=== PATIENT | male | born 1965 | race Caucasian/White ===

== ENCOUNTER 2019-12-16 17:15 | Outpatient (REF) | payer OTHER, SELFPAY ==
--- NOTE | 2019-12-16 17:15 | MR_ITS ---
EXAMINATION: MR KNEE WITHOUT CONTRAST, RIGHT CLINICAL INFORMATION: Right knee internal derangement. COMPARISON: Radiograph dated 03/21/2019. TECHNIQUE: MRI of the knee without contrast was performed using routine sequences on a high-field scanner. FINDINGS: MENISCI: Medial Meniscus: There is a horizontal tear of the posterior horn and body with significant free edge fraying. A small displaced 6 mm meniscal fragment is suspected at the free edge of the posterior horn of the root insertion. Lateral Meniscus: Intact. LIGAMENTS: Cruciate: Intact. Collateral: Intact. EXTENSOR MECHANISM: Intact. ARTICULAR CARTILAGE/BONE: Patellofemoral Compartment: A 1.0 x 0.5 cm area of partial-thickness cartilage loss and full-thickness chondral fissuring is present in the central trochlear groove inferiorly with underlying subchondral sclerosis and cortical irregularity. There is minimal superficial chondral irregularity at the median ridge. Tiny patellar osteophytes are present. Medial Compartment: There is a small focus of cystic change deep to the posterior root insertion of the medial meniscus at the posterolateral aspect of the medial tibial plateau. Marrow signal is otherwise normal. Minimal chondral thinning and surface irregularity at the medial tibial plateau. Lateral Compartment: Normal. JOINT FLUID AND BURSAE: Trace joint effusion and Andrade's cyst. IMPRESSION: 1. Horizontal tear of the posterior horn and body of the medial meniscus with free edge fraying and a probable small flap fragment at the posterior root insertion. 2. Minimal arthrosis in the medial and patellofemoral compartments. A full-thickness chondral fissure is present in the central trochlea. 3. Trace joint effusion and Andrade's cyst.
--- NOTE | 2019-12-16 17:35 | XR_ITS ---
EXAMINATION: XR SKULL CLINICAL INFORMATION: Pre-MRI. Attention right ear. COMPARISON: None TECHNIQUE: 3 views of the skull and facial bones were obtained FINDINGS: There is no radiopaque foreign body. Paranasal sinuses normally aerated. IMPRESSION: No radiopaque foreign body.
== END 2019-12-16 17:16 | disposition home or self-care (01) ==
LOC: HO.MRI 17:15
PROVIDERS: Visit Provider Physician Assistant
DX: M23.91 Unspecified internal derangement of right knee (principal); Z57.8 Occupational exposure to other risk factors
CPT/HCPCS: 70250; 73721

== ENCOUNTER → 2019-12-25 13:16 | Outpatient (BNVA) | payer OTHER, SELFPAY | PROVIDERS: PCP Internal Medicine; Visit Provider Physician Assistant | DX: Z76.89 Persons encountering health services in other specified circumstances (principal) ==

== ENCOUNTER 2019-12-31 06:08 | Outpatient (REF) | payer OTHER, SELFPAY ==
[2019-12-31 08:10] LABS: Hematocrit 37.8 % (42-52); Hemoglobin 12.1 g/dl (14.0-18.0); Mean Corpuscular Hemoglobin 28.4 pg (27.0-33.0); Mean Corpuscular Volume 88.7 fL (80-98); Mean Platelet Volume 9.8 fL (9.4-12.4); Platelet Count 298 X10*3/uL (160-400); Red Blood Count 4.26 X10*6/uL (4.60-5.80); Red Cell Distribution Width 13.2 % (11.0-16.0); White Blood Count 5.9 X10*3/uL (4.8-10.8)
[2019-12-31 08:39] LABS: Alanine Aminotransferase 19 U/L (0-40); Albumin Level 4.2 g/dL (3.5-5.0); Alkaline Phosphatase 44 U/L (39-117); Anion Gap 11 (12-20); Aspartate Amino Transferase 17 U/L (5-37); Bilirubin Direct 0.2 mg/dL (0.0-0.5); Bilirubin Total 0.4 mg/dL (0.0-1.0); Blood Urea Nitrogen 23 mg/dL (9-16); Calcium 9.4 mg/dL (8.4-10.2); Carbon Dioxide 30 mmol/L (22-29); Chloride 104 mmol/L (96-108); Cholesterol 237 mg/dL; Estimated Glomerular Filt Rate > 60; Glucose Random 100 mg/dL (60-115); HDL Cholesterol 54 mg/dL; LDL Cholesterol Calculated 163 mg/dl; Potassium 4.4 mmol/l (3.3-5.1); Sodium 141 mmol/L (135-145); Total Protein 7.3 g/dL (6.5-8.0); Triglycerides 104 mg/dL
== END 2019-12-31 06:09 | disposition home or self-care (01) ==
LOC: HO.LAB 06:08
PROVIDERS: Visit Provider Internal Medicine
DX: E11.9 Type 2 diabetes mellitus without complications (principal)
CPT/HCPCS: 36415; 80048; 80061; 80076; 85027

== ENCOUNTER → 2020-01-08 10:12 | Outpatient (BNVA) | payer OTHER, SELFPAY | PROVIDERS: PCP Internal Medicine; Referring Provider Internal Medicine; Visit Provider Orthopaedic Surgery | DX: Z76.89 Persons encountering health services in other specified circumstances (principal) ==

== ENCOUNTER → 2020-06-07 13:38 | Outpatient (BNVA) | payer OTHER, SELFPAY | PROVIDERS: PCP Internal Medicine; Visit Provider Physician Assistant ==

== ENCOUNTER 2020-06-16 06:05 | Day surgery (SDC) | payer OTHER, SELFPAY ==
[2020-06-10 11:05] VITALS: BMI 32.5
--- NOTE | 2020-06-15 10:40 | P.CONAN_ITS ---
Documented by User: Sally García 06/15/20 10:45 HPI - Anesthesia Eval Consult details Narrative: 54yo M for Right Knee Arthroscopy with Meniscus Pathology PMFSH Active Problems Active Problems: All Active Problems (Updated 06/10/20 @ 10:56 by Sary Hebert) Right knee meniscal tear (Acute) Allergic rash present on examination (Acute) Diabetes (Acute) Hypercholesterolemia (Acute) Class 2 severe obesity with body mass index (BMI) of 35 to 39.9 with serious comorbidity (Acute) Benign essential HTN (Acute) Generalized anxiety disorder (Acute) Past Medical History Medical History Benign essential HTN Class 2 severe obesity with body mass index (BMI) of 35 to 39.9 with serious comorbidity Diabetes Familial hypercholesterolemia Generalized anxiety disorder Hypercholesterolemia Family History Family History Father Colon cancer Mother Medical history unknown Surgical History Surgical History History of abdominal surgery History of open reduction and internal fixation (ORIF) procedure History of right inguinal hernia repair Hx of colonoscopy Social History Social History Smoking Status: Unknown if ever smoked Advance Directives: No Advance Directives Information Provided: No Advance Directives on File: No Recently lost weight without trying: No Current occupational status: employed 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 Allergies Allergy/AdvReac Type Severity Reaction Status Date / Time animal dander Allergy Unknown Unknown Verified 06/10/20 10:53 Home Medications Medication Instructions Recorded Confirmed Last Taken Type aspirin 81 mg tablet,delayed 81 mg PO DAILY 01/04/20 06/10/20 Unknown History release Exam Exam Date and Time: June 15, 2020 1040 Height,Weight and Vital Signs: Height 6 ft Weight 108.862 kg Assessment and Plan Assessment Anesthesia Assessment: Chart Reviewed Documented by User: Chidi Lazo MD 06/16/20 07:24 [facility] Past Medical History Medical History Benign essential HTN Class 2 severe obesity with body mass index (BMI) of 35 to 39.9 with serious comorbidity Diabetes Familial hypercholesterolemia Generalized anxiety disorder Hypercholesterolemia Family History Family History Father Colon cancer Mother Medical history unknown Surgical History Surgical History History of abdominal surgery History of open reduction and internal fixation (ORIF) procedure History of right inguinal hernia repair Hx of colonoscopy Social History Social History Smoking Status: Unknown if ever smoked Advance Directives: No Advance Directives Information Provided: No Advance Directives on File: No Recently lost weight without trying: No Current occupational status: employed 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 Allergies Allergy/AdvReac Type Severity Reaction Status Date / Time animal dander Allergy Unknown Unknown Verified 06/10/20 10:53 Home Medications Medication Instructions Recorded Confirmed Last Taken Type aspirin 81 mg tablet,delayed 81 mg PO DAILY 01/04/20 06/10/20 Unknown History release Exam Airway Mallampati Class: II TM Dist: >3cm Neck ROM: Full Loose/Missing/Broken Teeth: No Heart: RRR Lungs: NL Assessment and Plan Assessment Anesthesia Assessment: Anesthesia Plan Discussed and Chart Reviewed Final Anesthetic Review NPO: Yes ASA Class: II Final Preanesthetic Review: No Changes in Pt Med Stat, Meds/Allgs Chart Reviewed, Consent Obtained/Reviewed and Anes Risks/Benef Reviewed Patient Risk: Low Procedure Risk: Low Anesthetic Plan Anesthetic Plan: GA Disposition: Standard PACU
[2020-06-16] VITALS (18 sets, daily range): BP systolic 123–140; BP diastolic 82–97; PULSE 74–93; RESP 12–16; TEMP 36.2–36.4; O2SAT 92–100
[2020-06-16] MEDS: Lactated Ringers 1,000 ML 100 ML IVCONT (06:35)
[2020-06-16 06:37] LABS: Glucose, Whole Blood 108 mg/dL (60-115)
--- NOTE | 2020-06-16 07:21 | MHC.SHP ---
Pre-Procedural Eval Section A The patient is an INPATIENT: No Changes since office visit: No Cold of Flu in the past 2 weeks, No New Medical Problems, No Changes in Medication and No Patient answered all questions The History & Physical has been completed within 30 days and I have reviewed it.: Yes Section B Chief Complaint: Medial Meniscus Tear Allergies: Allergies Allergy/AdvReac Type Severity Reaction Status Date / Time animal dander Allergy Unknown Unknown Verified 06/10/20 10:53 Plan I have reviewed the history and physical and performed a pertinent physical examination on my patient. No changes have occurred unless specified.
--- NOTE | 2020-06-16 08:06 | W.PM.OPN ---
Operative Note Operative Note Date of Service: 06/16/20 Narrative: ARTHROSCOPIC SURGERY NOTE SURGEON: Dr Tyrell Jane) Instrum ASSISTANT DIRECTOR OF RESIDENCE LIFE: Loren Mccain PAC PREOP DIAGNOSIS: Medial meniscal tear right knee POSTOP DIAGNOSIS: Same OPERATIVE PROCEDURE: Arthroscopic surgery with partial medial meniscectomy right knee CLINICAL NOTE: This gentleman comes today in regards to his right knee. He had pain discomfort consistent with meniscus tear. He failed non operative management. Therefore after explaining the risks, benefits, alternatives of surgery and answering all his questions it was mutually agreed upon to carry following procedure MOTION: Full range of motion STABILITY: Cruciate and collateral ligaments intact OPERATIVE DETAILS PREPARATION: GA, STANDARD TECHNIQUE, tourniquet E to 300 mm of mercury for 10 minutes SURGICAL TIME-OUT: Patient identified; procedure confirmed; site confirmed. Medical and allergy history reviewed. No preoperative antibiotics. No DVT prophylaxis. All other items discussed and agreed upon. INCISIONS: Superolateral, inferolateral, inferomedial stab incisions SYNOVIUM: Normal SYNOVIAL FLUID: Clear MEDIAL COMPARTMENT: There was complex tear in the posterior horn of the medial meniscus. There was resected using a combination of handheld cutters and power shaver to stable meniscus. The tibial and femoral articular surfaces were intact INTERCONDYLAR NOTCH: ACL palpated visualized and intact. PCL palpated intact LATERAL COMPARTMENT: Lateral meniscus. Tibial and femoral articular surfaces and popliteus tendon all stable and intact ANTERIOR COMPARTMENT: Medial lateral gutters clear suprapatellar pouch clear patella femoral sulcus articular surfaces were intact CLOSURE: 30 cc of 0.25% Marcaine with epinephrine injected in the knee. Steri-Strips and sterile dressing then applied. RECOMMENDATIONS: 1)Restore motion strength 2)Resume activities as tolerated 3)Discharge today with prescription for analgesic 4)Follow up in the office in 10-14 days
[2020-06-16] MEDS: Acetaminophen 325 MG TABLET 975 MG PO (08:52)
[2020-06-16] MEDS: Ketorolac Tromethamine 30 MG/ML VIAL IVPUSH (08:53)
[2020-06-16 10:45] LABS: Glucose, Whole Blood 152 mg/dL (60-115)
== END 2020-06-16 12:10 | disposition home or self-care (01) ==
PROVIDERS: PCP Internal Medicine; Visit Provider Orthopaedic Surgery
PROC: (CPT 29870; principal; 2020-06-16 07:30)
DX: S83.231A Complex tear of medial meniscus, current injury, right knee, initial encounter (principal); E11.9 Type 2 diabetes mellitus without complications; I10 Essential (primary) hypertension; X58.XXXA Exposure to other specified factors, initial encounter; Y93.9 Activity, unspecified; Y92.9 Unspecified place or not applicable; Y99.9 Unspecified external cause status; Z79.82 Long term (current) use of aspirin
CPT/HCPCS: 29881; 82947; J0171; J1170; J1885; J2250; J2405; J3010

== ENCOUNTER → 2020-06-28 10:58 | Outpatient (BNVA) | payer OTHER, SELFPAY | PROVIDERS: PCP Internal Medicine; Visit Provider Physician Assistant ==

== ENCOUNTER 2020-08-17 10:20 | Outpatient (REF) | payer OTHER, SELFPAY ==
[2020-08-17 11:48] LABS: Hematocrit 40.1 % (42-52); Hemoglobin 12.7 g/dl (14.0-18.0); Mean Corpuscular HGB Conc 31.7 g/dl (31.0-36.0); Mean Corpuscular Hemoglobin 27.9 pg (27.0-33.0); Mean Corpuscular Volume 88.1 fL (80-98); Mean Platelet Volume 9.4 fL (9.4-12.4); Platelet Count 313 X10*3/uL (160-400); Red Blood Count 4.55 X10*6/uL (4.60-5.80); Red Cell Distribution Width 13.1 % (11.0-16.0); White Blood Count 6.2 X10*3/uL (4.8-10.8)
[2020-08-17 11:57] LABS: Estimated Average Glucose 134 mg/dL; Hemoglobin A1c % 6.3 %
[2020-08-17 12:32] LABS: Thyroid Stimulating Hormone 1.08 uIU/mL (0.32-4.0)
[2020-08-17 12:41] LABS: Alanine Aminotransferase 16 U/L (0-40); Albumin Level 4.3 g/dL (3.5-5.0); Alkaline Phosphatase 49 U/L (39-117); Anion Gap 13 (12-20); Aspartate Amino Transferase 13 U/L (5-37); Bilirubin Direct 0.2 mg/dL (0.0-0.5); Bilirubin Total 0.3 mg/dL (0.0-1.0); Blood Urea Nitrogen 23 mg/dL (9-16); Calcium 9.7 mg/dL (8.4-10.2); Carbon Dioxide 28 mmol/L (22-29); Chloride 104 mmol/L (96-108); Cholesterol 266 mg/dL; Estimated Glomerular Filt Rate > 60; Glucose Random 123 mg/dL (60-115); HDL Cholesterol 53 mg/dL; LDL Cholesterol Calculated 182 mg/dl; Potassium 5.2 mmol/L (3.3-5.1); Sodium 140 mmol/L (135-145); Total Protein 7.5 g/dL (6.5-8.0); Triglycerides 158 mg/dL
== END 2020-08-17 10:21 | disposition home or self-care (01) ==
LOC: HO.LAB 10:20
PROVIDERS: PCP Internal Medicine; Visit Provider Internal Medicine
DX: E66.01 Morbid (severe) obesity due to excess calories (principal); I10 Essential (primary) hypertension
CPT/HCPCS: 36415; 80048; 80061; 80076; 83036; 84443; 85027

== ENCOUNTER 2020-10-17 13:35 | Emergency (ER) | payer OTHER, SELFPAY ==
--- NOTE | ~2020-10-17 | XR_ITS ---
EXAMINATION: LEFT HAND CLINICAL INFORMATION: Fifth finger injury COMPARISON: None TECHNIQUE: 3 views of the hand and scaphoid view of the wrist FINDINGS: There is no evidence of acute fracture or dislocation of the left hand. Bony density about the base of the first metacarpal is seen consistent with avulsion injury. No radiopaque foreign body identified.. XR/XR hand wrist LT IMPRESSION: No acute fracture or dislocation of the left hand. Evidence for previous avulsion injury base of the first metacarpal..
[2020-10-17 13:54] VITALS: BP 114/88; PULSE 93; RESP 17; TEMP 36.4; O2SAT 97; BMI 31.6
--- NOTE | 2020-10-17 15:31 | ED_ITS ---
HPI - Extremity Problem General Chief complaint: Extremity Injury, Upper Stated complaint: Work related accident Time Seen by Provider: 10/17/20 13:52 Source: patient Mode of arrival: ambulatory History of Present Illness HPI Narrative: 55-year-old male with a past medical history of HTN, diabetes, hyperlipidemia, anxiety, presenting to the ED complaining lacerations to left 5th digit s/p getting finger caught in machinery at work around 11:30 a.m. reports pain. Tetanus unknown. Denies numbness, tingling, decreased ROM, injury to other area MD Complaint: joint paint Related Data Home Medications Medication Instructions Recorded Confirmed betamethasone, augmented 0.05 % appl TOPICAL 08/22/20 08/23/20 topical cream Previous Rx's Medication Instructions Recorded omeprazole 40 mg capsule,delayed 40 mg PO DAILY #90 cap 03/22/20 release metformin 1,000 mg tablet 1,000 mg PO BID #180 tab 03/24/20 pioglitazone 30 mg tablet 30 mg PO DAILY #90 tab 06/17/20 gemfibrozil 600 mg tablet 600 mg PO BID #180 tab 09/14/20 lisinopril 10 mg tablet 10 mg PO DAILY #90 tab 09/14/20 paroxetine HCl 20 mg tablet 20 mg PO QAM #90 tab 09/14/20 Allergies Allergy/AdvReac Type Severity Reaction Status Date / Time animal dander Allergy Unknown Unknown Verified 10/17/20 13:53 Review of Systems Review of Systems: Constitutional: No Fever, No Chills Musculoskeletal: + joint pain, No Myalgias, No Joint Swelling Skin: + Skin Lesions, No rash Neuro: No Weakness, No Numbness, No Paresthesias Yes all other systems are reviewed and are negative [facility] Past Medical History Attestation statement: The following information was validated with the patient. Medical History Benign essential HTN Class 2 severe obesity with body mass index (BMI) of 35 to 39.9 with serious comorbidity Diabetes Familial hypercholesterolemia Generalized anxiety disorder Hypercholesterolemia Surgical History History of abdominal surgery History of open reduction and internal fixation (ORIF) procedure History of right inguinal hernia repair Hx of colonoscopy Family History Family History Father Colon cancer Mother Medical history unknown Social History Social History Housing: House Alcohol intake: current Alcohol intake frequency: holidays/special occasions only Patient Tobacco Use Status: Former Tobacco user Advance Directives: No Advance Directives Information Provided: No Current occupational status: employed 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 Vital Signs: Vital Signs: Last Vital Signs Temp 98.0 F 10/17/20 16:22 Pulse 77 10/17/20 16:22 Resp 16 10/17/20 16:22 BP 118/80 10/17/20 16:22 Pulse Ox 99 10/17/20 16:22 Body Mass Index 31.6 Const: General: cooperative and healthy appearing Orientation/consciousness: patient oriented x3 Limitations: no limitations HENMT: Head: Yes normal to inspection Ears: hearing grossly normal bilaterally General nose exam: Normal external nose present Face and sinus: Yes normal facial exam Eyes: General: appearance normal, both eyes and all related structures EOM: EOMs intact bilaterally Neck: Neck: Yes normal visual inspection Resp: Effort & Inspection: normal respiratory effort Cardio: Rate: regular rate Peripheral pulses: radial pulses present Skin: Other: left 5th digit: 1.0cm laceration noted to volar aspect on DIP, and 1.5cm laceration to palmar aspect between PIP and DIP Rashes: no rashes Neuro: General: patient oriented x3 Gait exam (Neuro): Normal gait present Extrem: Other: No evidence of tendon rupture General: Yes normal to inspection Course Course Course Narrative: XR hand wrist LT IMPRESSION: No acute fracture or dislocation of the left hand. ? Evidence for previous avulsion injury base of the first metacarpal. MDM - Extremity (Nontraumatic) MDM Narrative Medical decision making narrative: 55-year-old male with a past medical history of HTN, diabetes, hyperlipidemia, anxiety, presenting to the ED complaining lacerations to left 5th digit s/p getting finger caught in machinery at work around 11:30 a.m. on exam vital signs stable, NAD/well-appearing, physical exam as above. Will update tetanus and repair wounds. Procedures Laceration Laceration 1: Site: hand Side (If applicable): left Size (cm): 1.0 Description: linear Depth: simple, single layer Local Anesthetic: lidocaine 1% and other anesthetic (digital block) Amount of anesthesia used (mL): 5 Pre-repair: wound explored and irrigated extensively Skin layer closed with: nylon Size (cm): 4-0 Number of sutures: 2 Technique: simple, interrupted Laceration 2: Site: hand Side (If applicable): left Size (cm): 1.5 Description: linear Depth: simple, single layer Local Anesthetic: lidocaine 1% and other anesthetic (digital block) Amount of anesthesia used (mL): 5 Pre-repair: wound explored and irrigated extensively Skin layer closed with: nylon Size (cm): 4-0 Number of sutures: 3 Technique: simple, interrupted Discharge Plan Discharge Clinical Impression: Finger laceration Qualifiers: Encounter type: initial encounter Finger: little finger Damage to nail status: without damage Foreign body presence: without foreign body Laterality: left Qualified Code(s): S61.217A - Laceration without foreign body of left little finger without damage to nail, initial encounter Patient Disposition: Home, Self-Care Instructions: Finger Laceration (ED) Additional Instructions: You need to return to any emergency department or urgent care in 7-10 days to have her stitches taken out Keep area dry and clean, avoid excessive water soaking, immersion in water, contamination/Dirt Please were glove if your hand will be getting dirty Your tetanus was updated today If area begins look infected, is red, there is drainage from the area, or you have fever please return to the ED sooner Apply bacitracin or Neosporin at home, after the stitches are removed you may apply a anti scar cream like mederma Please follow-up with hand specialist Prescriptions: No Action omeprazole 40 mg capsule,delayed release(DR/EC) 40 mg PO DAILY Qty: 90 RF: 3 metformin 1,000 mg tablet 1,000 mg PO BID Qty: 180 RF: 1 pioglitazone 30 mg tablet 30 mg PO DAILY Qty: 90 RF: 1 paroxetine HCl 20 mg tablet 20 mg PO QAM Qty: 90 RF: 1 lisinopril 10 mg tablet 10 mg PO DAILY Qty: 90 RF: 1 gemfibrozil 600 mg tablet 600 mg PO BID Qty: 180 RF: 1 betamethasone, augmented 0.05 % cream topical RF: 0 Referrals: ED Physician,Generic [Physician] - 1 week (Return to any emergency department or urgent care in 7-10 days to have your stitches taken out) Stand Alone Forms: Work/School Release Interventions: ED Discharge Assessment Last Done: 10/17/20 16:25 Discharge Date/Time: 10/17/20 16:36
[2020-10-17] MEDS: Diphth,Pertus(ACell),Tet Adult 0.5 ML SYRINGE IM (15:42)
[2020-10-17] MEDS: Lidocaine HCl 1 % MPF 5 ML VIAL SUBCUT (15:46)
[2020-10-17 16:22] VITALS: BP 118/80; PULSE 77; RESP 16; TEMP 36.7; O2SAT 99
--- NOTE | 2020-10-17 16:23 | PC.NURSE ---
DRY STERILE DRESSING APPLIED TO PATIENT LEFT PINKY FINGER BY THIS PCT .
== END 2020-10-17 16:36 | disposition home or self-care (01) ==
PROVIDERS: Emergency Provider Emergency Medicine
DX: S61.217A Laceration without foreign body of left little finger without damage to nail, initial encounter (principal); M79.642 Pain in left hand; Y28.9XXA Contact with unspecified sharp object, undetermined intent, initial encounter; Y93.9 Activity, unspecified; Y92.9 Unspecified place or not applicable; Y99.0 Civilian activity done for income or pay
CPT/HCPCS: 12001; 73110; 73130; 90471; 90715; 99284

== ENCOUNTER 2021-03-02 08:39 | Outpatient (REF) | payer OTHER, SELFPAY ==
[2021-03-02 09:15] LABS: Hematocrit 38.1 % (42.0-52.0); Hemoglobin 12.4 g/dl (14.0-18.0); Mean Corpuscular HGB Conc 32.5 g/dl (31.0-36.0); Mean Corpuscular Hemoglobin 28.6 pg (27.0-33.0); Mean Corpuscular Volume 87.8 fL (80.0-98.0); Mean Platelet Volume 9.1 fL (9.4-12.4); Platelet Count 266 X10*3/uL (160-400); Red Blood Count 4.34 X10*6/uL (4.60-5.80); Red Cell Distribution Width 13.4 % (11.0-16.0); White Blood Count 5.8 X10*3/uL (4.8-10.8)
[2021-03-02 09:33] LABS: Estimated Average Glucose 134 mg/dL; Hemoglobin A1c % 6.3 %
[2021-03-02 09:41] LABS: Alanine Aminotransferase 19 U/L (0-40); Albumin Level 4.3 g/dL (3.5-5.0); Alkaline Phosphatase 48 U/L (39-117); Anion Gap 12 (12-20); Aspartate Amino Transferase 14 U/L (5-37); Bilirubin Direct 0.2 mg/dL (0.0-0.5); Bilirubin Total 0.5 mg/dL (0.0-1.0); Blood Urea Nitrogen 24 mg/dL (9-16); Calcium 9.8 mg/dL (8.4-10.2); Carbon Dioxide 28 mmol/L (22-29); Chloride 107 mmol/L (96-108); Cholesterol 237 mg/dL; Estimated Glomerular Filt Rate > 60; Glucose Random 132 mg/dL (60-115); HDL Cholesterol 47 mg/dL; LDL Cholesterol Calculated 167 mg/dl; Potassium 4.5 mmol/L (3.3-5.1); Sodium 142 mmol/L (135-145); Total Protein 7.3 g/dL (6.5-8.0); Triglycerides 118 mg/dL
[2021-03-02 10:01] LABS: Appearance Urine CLEAR; Color Urine YELLOW; Glucose Urine UA NEG (NEG); Leukocyte Esterase Urine NEG (NEG); Nitrite Urine NEG (NEG); Specific Gravity - Urine >= 1.030 (1.005-1.025); Urine Blood NEG (NEG); Urine Ketones NEG (NEG); Urine Protein NEG (NEG-TRACE)
[2021-03-02 10:27] LABS: Microalbum/Creatinine Ratio Ur 14.3 ug/mg cr
== END 2021-03-02 08:40 | disposition home or self-care (01) ==
LOC: HO.LAB 08:39
PROVIDERS: PCP Internal Medicine; Visit Provider Internal Medicine
DX: E11.9 Type 2 diabetes mellitus without complications (principal)
CPT/HCPCS: 36415; 80048; 80061; 80076; 81003; 82043; 83036; 84443; 85027

== ENCOUNTER 2021-03-29 08:15 | Outpatient (REF) | payer OTHER, SELFPAY ==
--- NOTE | 2021-03-29 14:29 | MHC.AU.AEV ---
Adult Audiological Evaluation Date of Visit: 03/29/21 Reason for Appointment: Patient reports that in December 2020, he suddenly felt feverish and could not hear out of his left ear. His left ear also felt blocked and had intermittent pains. He went to an urgent care clinic to be evaluated. A COVID test came back negative. The urgent care assumed the sudden changes in the left ear could be due to fluid and recommended decongestants. Patient reports there has been no improvement in his left ear. The hearing difficulty has been causing issues for the patient socially, at home, and at work. Patient also has a history of a stapedectomy in his right ear several years ago, which was performed in [place]. Hearing Handicap Inventory Does a hearing problem cause you to feel embarrassed when meeting new people?: No Does a hearing problem cause you to feel frustrated when talking to members of your family?: Yes Do you have difficulty when someone speaks in a whisper?: Yes Do you feel handicapped by a hearing problem?: No Does a hearing problem cause you difficulty when visiting friends, relatives, or neighbors?: Yes Does a hearing problem cause you to attend protestant service services less often than you would like?: No Does a hearing problem cause you to have arguments with family members?: Yes Does a hearing problem cause you difficulty when listening to TV or radio?: Yes Do you feel that any difficult with your hearing limits or hampers your personal or social life?: No Does a hearing problem cause you difficulty when in a restaurants with relatives or friends?: Yes HHIE SCORE: 24 Based on HHIE score, patient has: Mild to moderate perceived hearing handicap Ear History: Ear Deformity: None Reported Recent Ear Drainage: None Reported Recent Ear Pain: Left Ear Family History of Hearing Loss?: Yes: Grandmother Recent Ear Infections: None Reported Ear Infections in Childhood: None Reported History of Ear Wax Buildup: None Reported Previous Ear Surgery: Right Stapedectomy Bothersome Tinnitus/Ringing/Noises in Ears: None Reported Blocked/Full Sensation in Ear(s): Left Ear History of occupational noise exposure?: Yes: 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 History: No Medical History: Medical History: High Blood Pressure, Gist tumor- removed in 05/2006, Stapedectomy in 2000, Appendectomy in 1975 Otoscopy: Right Ear: Unremarkable Left Ear: Unremarkable Tympanometry: Tympanometry performed due to: To assess integrity of the middle ear system Right Ear: Normal Middle Ear System (Type A) Left Ear: Normal Middle Ear System (Type A) Hearing Evaluation: Transducer(s) Used: Insert Earphones Method: Conventional Audiometry Stimuli Used: Pure Tones Right Ear: Description of Hearing: Normal from 250-2000 Hz, steeply sloping to profound high frequency sensorineural hearing loss Left Ear: Description of Hearing: Moderate to moderately-severe sensorineural hearing loss Speech Recognition Threshold (SRT): Method Used: Recorded Lists Stimuli Used: Spondee Words Right Ear: 20 dBHL Left Ear: 60 dBHL Word Discrimination: Method: Recorded Lists Word Lists Used:: W-22 Right Ear: 96% at 60 dBHL Left Ear: 32% at 70 dBHL Most Comfortable Level (MCL): Right Ear: 60 dBHL Left Ear: 70 dBHL Interpretation of Results: Patient presents with moderate to moderately-severe sensorineural hearing loss in the left ear that occurred with sudden-onset in December 2020. After listening to sounds and speech in the right ear versus the left ear throughout today's testing, he reported afterwards that the overall sound quality in the left ear is very different than the right ear. The left ear is less clear and has a slight echo when the volume is increased. If the volume of speech stimuli went over 70 dBHL, it caused pain in his left ear. Recommendations: Patient reports that he was also referred to Ear, Nose, and Throat. Consultation with Ear, Nose, and Throat is recommended [place] to address the sudden-onset sensorineural hearing loss in his left ear. If the hearing loss cannot be medically managed, amplification options will need to be considered. The patient should contact his insurance plan to inquire about hearing aid benefits. If his insurance plan does not have hearing aid benefits, it is recommended that he contact [facility] at [email or web address] Diagnosis: Primary Diagnosis: H90.3 Bilateral Sensorineural Hearing Loss Signature: Provider: Fracisco Keating, CCC-A
== END 2021-03-29 08:16 | disposition home or self-care (01) ==
LOC: HO.SH 08:15
PROVIDERS: Visit Provider Internal Medicine
DX: H90.3 Sensorineural hearing loss, bilateral (principal)
CPT/HCPCS: 92557; 92567

== ENCOUNTER 2021-04-11 09:41 | Outpatient (REF) | payer OTHER, SELFPAY ==
[2021-04-11 11:17] LABS: Blood Urea Nitrogen 19 mg/dL (9-16); Estimated Glomerular Filt Rate > 60
== END 2021-04-11 09:42 | disposition home or self-care (01) ==
LOC: HO.10HDL 09:41
PROVIDERS: Visit Provider Otolaryngology
DX: Z01.812 Encounter for preprocedural laboratory examination (principal); H91.90 Unspecified hearing loss, unspecified ear
CPT/HCPCS: 36415; 82565; 84520

== ENCOUNTER 2021-08-31 11:01 | Outpatient (REF) | payer OTHER, SELFPAY ==
[2021-08-31 11:32] LABS: Hematocrit 37.8 % (42.0-52.0); Hemoglobin 12.3 g/dl (14.0-18.0); Mean Corpuscular HGB Conc 32.5 g/dl (31.0-36.0); Mean Corpuscular Hemoglobin 28.3 pg (27.0-33.0); Mean Corpuscular Volume 86.9 fL (80.0-98.0); Mean Platelet Volume 9.1 fL (9.4-12.4); Platelet Count 292 X10*3/uL (160-400); Red Blood Count 4.35 X10*6/uL (4.60-5.80); Red Cell Distribution Width 13.4 % (11.0-16.0); White Blood Count 5.9 X10*3/uL (4.8-10.8)
[2021-08-31 11:41] LABS: Estimated Average Glucose 128 mg/dL; Hemoglobin A1c % 6.1 %
[2021-08-31 12:10] LABS: Alanine Aminotransferase 15 U/L (0-40); Albumin Level 4.3 g/dL (3.5-5.0); Alkaline Phosphatase 47 U/L (39-117); Anion Gap 12 (12-20); Aspartate Amino Transferase 13 U/L (5-37); Bilirubin Direct 0.2 mg/dL (0.0-0.5); Bilirubin Total 0.4 mg/dL (0.0-1.0); Blood Urea Nitrogen 21 mg/dL (9-16); Calcium 9.4 mg/dL (8.4-10.2); Carbon Dioxide 27 mmol/L (22-29); Chloride 104 mmol/L (96-108); Cholesterol 258 mg/dL; Estimated Glomerular Filt Rate > 60; Glucose Random 104 mg/dL (60-115); HDL Cholesterol 51 mg/dL; LDL Cholesterol Calculated 187 mg/dl; Potassium 4.6 mmol/L (3.3-5.1); Sodium 138 mmol/L (135-145); Total Protein 7.4 g/dL (6.5-8.0); Triglycerides 103 mg/dL
[2021-08-31 12:13] LABS: Appearance Urine CLEAR; Color Urine YELLOW; Glucose Urine UA NEG (NEG); Leukocyte Esterase Urine NEG (NEG); Nitrite Urine NEG (NEG); PH 6.5 (5.0-8.0); Urine Blood NEG (NEG); Urine Ketones NEG (NEG); Urine Protein NEG (NEG-TRACE)
[2021-08-31 12:31] LABS: Thyroid Stimulating Hormone 1.21 uIU/mL (0.32-4.0)
[2021-08-31 12:48] LABS: Microalbum/Creatinine Ratio Ur 4.2 ug/mg cr
== END 2021-08-31 11:02 | disposition home or self-care (01) ==
LOC: HO.LAB 11:01
PROVIDERS: PCP Internal Medicine; Visit Provider Internal Medicine
DX: E11.9 Type 2 diabetes mellitus without complications (principal); E78.00 Pure hypercholesterolemia, unspecified; E66.01 Morbid (severe) obesity due to excess calories; G47.33 Obstructive sleep apnea (adult) (pediatric)
CPT/HCPCS: 36415; 80048; 80061; 80076; 81003; 82043; 83036; 84443; 85027

== ENCOUNTER → 2021-12-28 15:40 | Outpatient (REF) | payer OTHER, SELFPAY | LOC: HO.SL 15:40 | PROVIDERS: PCP Internal Medicine; Visit Provider Nurse Practitioner Family | DX: G47.33 Obstructive sleep apnea (adult) (pediatric) (principal); R40.0 Somnolence; R06.83 Snoring | CPT/HCPCS: 95806 ==

== ENCOUNTER 2022-03-13 17:10 | Outpatient (REF) | payer OTHER, SELFPAY ==
[2022-03-13 18:04] LABS: Alanine Aminotransferase 43 U/L (0-40); Albumin Level 4.7 g/dL (3.5-5.0); Alkaline Phosphatase 75 U/L (39-117); Anion Gap 12 (12-20); Aspartate Amino Transferase 24 U/L (5-37); Bilirubin Total 0.7 mg/dL (0.0-1.0); Blood Urea Nitrogen 20 mg/dL (9-16); Calcium 10.1 mg/dL (8.4-10.2); Carbon Dioxide 30 mmol/L (22-29); Chloride 102 mmol/L (96-108); Cholesterol 219 mg/dL; Estimated Glomerular Filt Rate > 60; Glucose Fasting 95 mg/dL (60-99); HDL Cholesterol 45 mg/dL; LDL Cholesterol Calculated 118 mg/dl; Potassium 4.3 mmol/L (3.3-5.1); Sodium 140 mmol/L (135-145); Total Protein 7.9 g/dL (6.5-8.0); Triglycerides 281 mg/dL
== END 2022-03-13 17:11 | disposition home or self-care (01) ==
LOC: HO.LAB 17:10
PROVIDERS: PCP Internal Medicine; Visit Provider Nurse Practitioner Family
DX: E78.00 Pure hypercholesterolemia, unspecified (principal); E11.9 Type 2 diabetes mellitus without complications
CPT/HCPCS: 36415; 80053; 80061